=== PATIENT | male | born 1990 | race African-American/Black ===

== ENCOUNTER 2021-08-04 09:45 | Outpatient (REF) | payer BC, SELFPAY ==
--- NOTE | ~2021-08-04 | MR_ITS ---
EXAMINATION: MR CERVICAL SPINE WITHOUT AND WITH CONTRAST CLINICAL INFORMATION: Spastic paraparesis. COMPARISON: There are no prior studies available for comparison at time of dictation. TECHNIQUE: MRI of the cervical spine was obtained using routine sequences with and without contrast. Intravenous contrast: Gadavist 10 mL. FINDINGS: VERTEBRAL BODIES AND PARASPINAL SOFT TISSUES: There is a mild levoscoliosis. There is narrowing of intervertebral disc height at C4-C5 and C5-C6. The vertebral bodies have normal height and contour and no fractures are demonstrated. There is diffuse abnormal signal in the bone marrow which may suggest a marrow infiltration process. There is no abnormal osseous enhancement. The paravertebral structures are unremarkable. CERVICOMEDULLARY JUNCTION AND VISUALIZED POSTERIOR FOSSA: The posterior fossa appears normal. The clivus appears bulky with slightly heterogenous marrow signal. There is mild increased signal within the spinal cord at the level of C5-C6. There is no abnormal enhancement of the cord. SPINAL LEVELS: C2-C3: The facet joints appear normal bilaterally. Posterior disc contour is normal. There is no spinal cord compression or central stenosis. The neural foramina are patent bilaterally. C3-C4: The facet joints appear normal bilaterally. Posterior disc contour is normal. There is no spinal cord compression or central stenosis. The neural foramina are patent bilaterally. C4-C5: The facet joints appear normal. There is a broad-based posterior disc protrusion with an annular fissure with mild flattening of the ventral thecal sac and spinal cord. There is mild to moderate central stenosis. The neural foramina are patent bilaterally. C5-C6: The facet joints appear normal. There is a central and right-sided disc protrusion which effaces CSF around the cord with mild compression of the cord, and as described above, there is edematous signal within the cord. The neural foramina appear patent. There is moderate to severe central stenosis. C6-C7: The facet joints appear normal bilaterally. Posterior disc contour is normal. There is no spinal cord compression or central stenosis. The neural foramina are patent bilaterally. C7-T1: The facet joints appear normal bilaterally. Posterior disc contour is normal. There is no spinal cord compression or central stenosis. The neural foramina are patent bilaterally. MR/MR cervical spine wo/w con IMPRESSION: 1. There is a posterior disc protrusion which is more prominent on the right at C5-C6 with compression of the cord and there is edematous signal within the cord. There is moderate to severe central stenosis. 2. At C4-C5 there is a broad-based posterior disc protrusion with mild flattening of the ventral thecal sac and spinal cord and there is mild to moderate central stenosis. 3. There is diffuse abnormal marrow signal, which may be consistent with a marrow infiltration process. Marrow signal in the clivus is slightly heterogenous and the clivus appears bulky. This is nonspecific and possible etiologies include chronic infection, and early phases of myelodysplastic/myeloproliferative disorders. Consider correlation with clinical history and, potentially, a CBC with blood smear.
== END 2021-08-04 09:46 | disposition home or self-care (01) ==
LOC: HO.MRI 09:45
PROVIDERS: Visit Provider Psychiatry & Neurology Neurology
DX: G83.89 Other specified paralytic syndromes (principal)
CPT/HCPCS: 72156; A9585